=== PATIENT | female | born 1970 | race Caucasian/White ===

== ENCOUNTER 2017-10-14 14:09 | Outpatient (CLI) | payer OTHER ==
[~2017-10-14 14:09] MED LIST: AMOX1TAB12 PO; BETAMETHASONE D60 ML TP; DOLOGESIC CAPSU1 CAP PO; FLONASE16 GM NS; GILTUSS TR TAB1 EACH PO; LIPO-FLAVONOID1 EACH PO; MECLIZINE HCL12.5 MG PO; ORPH100T PO; PRILOSEC40 MG; PRILOSEC40 MG PO; PROTONIX40 MG PO; ZITHROMAX TRI-500 MG PO; ZYRTEC10 MG PO
== END 2017-10-14 14:14 | disposition home or self-care (01) ==
LOC: SONOGRAMA 14:09
DX: R10.2 Pelvic and perineal pain (principal)

== ENCOUNTER → 2017-11-09 | Outpatient (CLI) | payer OTHER | END | disposition home or self-care (01) | LOC: LAB 10:29 → EDSTATUS 10:30 → LAB 10:31 | DX: N83.02 Follicular cyst of left ovary (principal); N92.0 Excessive and frequent menstruation with regular cycle ==

== ENCOUNTER 2017-11-22 09:43 | Inpatient (IN) | payer OTHER ==
[~2017-11-22] VITALS: Ht 152.4 cm; Wt 63.5 kg
[2017-11-26] MEDS ORDERED: PROTONIX40 MG (15:44)
== END 2017-11-27 11:01 | disposition home or self-care (01) | DRG 743 ==
LOC: SURH 11-25 02:15 → SURG-SUITE 11-25 05:40 → O/R 11-25 05:40 → CIR.AMB 11-25 09:13 → EDSTATUS 11-25 09:46 → SURH 11-25 09:47 → SURG-SUITE 11-25 11:12
PROVIDERS: Obstetrics & Gynecology Gynecologic Oncology
PROC: 0UT64ZZ Resection of Left Fallopian Tube, Percutaneous Endoscopic Approach (ICD-10-PCS; 2017-11-25)
PROC: 0UT14ZZ Resection of Left Ovary, Percutaneous Endoscopic Approach (ICD-10-PCS; 2017-11-25)
PROC: 0UB94ZZ Excision of Uterus, Percutaneous Endoscopic Approach (ICD-10-PCS; principal; 2017-11-25 02:15)
DX: D25.9 Leiomyoma of uterus, unspecified (principal); N83.292 Other ovarian cyst, left side; D64.89 Other specified anemias; E80.6 Other disorders of bilirubin metabolism; N83.12 Corpus luteum cyst of left ovary

== ENCOUNTER 2018-04-01 16:07 | Outpatient (CLI) | payer OTHER ==
[~2018-04-01 16:07] MED LIST changes: +PROTONIX40 MG
== END 2018-04-01 16:49 | disposition home or self-care (01) ==
LOC: LAB 16:07
DX: R53.1 Weakness (principal); R51 Headache; R50.9 Fever, unspecified

== ENCOUNTER 2018-07-25 06:23 | Outpatient (CLI) | payer OTHER | END 2018-07-25 06:38 | disposition home or self-care (01) | LOC: LAB 06:23 | DX: R53.83 Other fatigue (principal); R57.8 Other shock; M25.50 Pain in unspecified joint ==

== ENCOUNTER → 2018-08-04 12:58 | Outpatient (CLI) | payer OTHER | END | disposition home or self-care (01) | LOC: LAB 08-03 09:51 | DX: N39.0 Urinary tract infection, site not specified (principal); E03.8 Other specified hypothyroidism ==

== ENCOUNTER → 2018-09-12 | Outpatient (CLI) | payer OTHER | END | disposition home or self-care (01) | LOC: LAB 10:11 | DX: M25.50 Pain in unspecified joint (principal); R76.0 Raised antibody titer ==

== ENCOUNTER 2018-10-14 10:23 | Outpatient (CLI) | payer OTHER | END 2018-10-14 16:25 | disposition home or self-care (01) | LOC: LAB 10:23 | DX: C90.00 Multiple myeloma not having achieved remission (principal); M33.22 Polymyositis with myopathy; M32.9 Systemic lupus erythematosus, unspecified ==

== ENCOUNTER 2018-10-16 21:25 | Emergency (ER) | payer OTHER ==
[~2018-10-16] VITALS: Ht 152.4 cm; Wt 68.0 kg
== END 2018-10-17 12:43 | disposition home or self-care (01) ==
LOC: ER 21:25
DX: E80.6 Other disorders of bilirubin metabolism (principal); N39.0 Urinary tract infection, site not specified

== ENCOUNTER 2018-10-19 10:18 | Outpatient (CLI) | payer OTHER | END 2018-10-19 10:39 | disposition home or self-care (01) | LOC: LAB 10:18 | DX: D59.6 Hemoglobinuria due to hemolysis from other external causes (principal); E80.6 Other disorders of bilirubin metabolism; K75.9 Inflammatory liver disease, unspecified; D64.89 Other specified anemias ==

== ENCOUNTER 2019-01-24 10:55 | Outpatient (CLI) | payer OTHER | END 2019-01-24 11:02 | disposition home or self-care (01) | LOC: LAB 10:55 | DX: N39.0 Urinary tract infection, site not specified (principal); Z00.00 Encounter for general adult medical examination without abnormal findings; R42 Dizziness and giddiness; E78.49 Other hyperlipidemia ==

== ENCOUNTER 2019-01-25 15:08 | Outpatient (CLI) | payer OTHER | END 2019-01-25 15:12 | disposition home or self-care (01) | LOC: LAB 15:08 | DX: J11.1 Influenza due to unidentified influenza virus with other respiratory manifestations (principal); R50.9 Fever, unspecified; A49.8 Other bacterial infections of unspecified site ==

== ENCOUNTER 2019-02-17 07:00 | Outpatient (CLI) | payer OTHER | END 2019-02-17 15:00 | disposition home or self-care (01) | LOC: LAB 07:00 | DX: Z11.3 Encounter for screening for infections with a predominantly sexual mode of transmission (principal) ==

== ENCOUNTER 2019-02-24 07:37 | Outpatient (CLI) | payer OTHER | END 2019-02-24 07:48 | disposition home or self-care (01) | LOC: MAMO-SONO 07:37 | DX: Z12.31 Encounter for screening mammogram for malignant neoplasm of breast (principal); N64.4 Mastodynia ==

== ENCOUNTER → 2019-03-31 08:19 | Outpatient (CLI) | payer OTHER | END | disposition home or self-care (01) | LOC: LAB 08:19 | DX: E03.8 Other specified hypothyroidism (principal); E78.00 Pure hypercholesterolemia, unspecified ==

== ENCOUNTER 2019-07-17 16:40 | Outpatient (CLI) | payer OTHER | END 2019-07-17 18:00 | disposition home or self-care (01) | LOC: LAB 16:40 | DX: J11.1 Influenza due to unidentified influenza virus with other respiratory manifestations (principal); R05 Cough ==

== ENCOUNTER → 2019-10-17 09:28 | Outpatient (CLI) | payer OTHER | END | disposition home or self-care (01) | LOC: LAB 10-13 16:40 | DX: R42 Dizziness and giddiness (principal); Z00.00 Encounter for general adult medical examination without abnormal findings; E78.49 Other hyperlipidemia; E55.9 Vitamin D deficiency, unspecified; N39.0 Urinary tract infection, site not specified; R10.2 Pelvic and perineal pain ==

== ENCOUNTER 2020-02-12 08:47 | Outpatient (CLI) | payer OTHER | END 2020-02-12 15:00 | disposition home or self-care (01) | LOC: LAB 08:47 | PROVIDERS: ATTEND General Practice | DX: R10.2 Pelvic and perineal pain (principal); Z13.6 Encounter for screening for cardiovascular disorders; Z00.8 Encounter for other general examination; Z12.31 Encounter for screening mammogram for malignant neoplasm of breast; Z12.11 Encounter for screening for malignant neoplasm of colon ==

== ENCOUNTER 2020-02-12 14:25 | Outpatient (CLI) | payer OTHER | END 2020-02-12 14:43 | disposition home or self-care (01) | LOC: SONOGRAMA 14:25 | PROVIDERS: ATTEND General Practice | DX: R10.84 Generalized abdominal pain (principal) ==

== ENCOUNTER 2020-03-13 15:25 | Outpatient (CLI) | payer OTHER | END 2020-03-13 15:30 | disposition home or self-care (01) | LOC: LAB 15:25 | PROVIDERS: ATTEND General Practice | DX: Z03.818 Encounter for observation for suspected exposure to other biological agents ruled out (principal); Z20.828 Contact with and (suspected) exposure to other viral communicable diseases ==

== ENCOUNTER 2020-04-19 06:30 | Day surgery (SDC) | payer OTHER | END 2020-04-19 10:00 | disposition home or self-care (01) | LOC: EDBD → AMB-ENDOS 06:30 | PROVIDERS: ATTEND Internal Medicine Gastroenterology | DX: D13.2 Benign neoplasm of duodenum (principal); K29.50 Unspecified chronic gastritis without bleeding; K44.9 Diaphragmatic hernia without obstruction or gangrene ==

== ENCOUNTER → 2020-04-30 10:09 | Outpatient (CLI) | payer OTHER | END | disposition home or self-care (01) | LOC: LAB 10:09 | PROVIDERS: ATTEND Internal Medicine Gastroenterology | DX: B96.81 Helicobacter pylori [H. pylori] as the cause of diseases classified elsewhere (principal); K29.30 Chronic superficial gastritis without bleeding; R74.0 Nonspecific elevation of levels of transaminase and lactic acid dehydrogenase [LDH]; E80.6 Other disorders of bilirubin metabolism ==

== ENCOUNTER → 2020-07-19 15:25 | Outpatient (CLI) | payer OTHER | END | disposition home or self-care (01) | LOC: LAB 15:25 | PROVIDERS: ATTEND Anesthesiology | DX: Z03.818 Encounter for observation for suspected exposure to other biological agents ruled out (principal) ==

== ENCOUNTER → 2020-09-04 10:17 | Outpatient (CLI) | payer OTHER | END | disposition home or self-care (01) | LOC: LAB 10:17 | PROVIDERS: ATTEND Colon & Rectal Surgery | DX: N39.0 Urinary tract infection, site not specified (principal); D53.8 Other specified nutritional anemias; K59.00 Constipation, unspecified; A92.8 Other specified mosquito-borne viral fevers; R53.81 Other malaise ==

== ENCOUNTER → 2020-09-16 09:05 | Outpatient (CLI) | payer OTHER | END | disposition home or self-care (01) | LOC: LAB 09:05 | PROVIDERS: ATTEND Anesthesiology | DX: E80.6 Other disorders of bilirubin metabolism (principal) ==

== ENCOUNTER → 2020-10-21 08:31 | Outpatient (CLI) | payer OTHER | END | disposition home or self-care (01) | LOC: LAB 08:31 | PROVIDERS: ATTEND Anesthesiology | DX: Z13.1 Encounter for screening for diabetes mellitus (principal) ==

== ENCOUNTER → 2020-11-12 10:05 | Outpatient (CLI) | payer OTHER | END | disposition home or self-care (01) | LOC: LAB 10:05 | PROVIDERS: ATTEND Anesthesiology | DX: Z03.818 Encounter for observation for suspected exposure to other biological agents ruled out (principal) ==

== ENCOUNTER 2021-01-30 10:51 | Outpatient (CLI) | payer OTHER | END 2021-01-30 11:04 | disposition home or self-care (01) | LOC: RAD → EDBD → SONOGRAMA 10:51 | PROVIDERS: ATTEND Obstetrics & Gynecology Gynecologic Oncology | DX: N92.1 Excessive and frequent menstruation with irregular cycle (principal) ==

== ENCOUNTER → 2021-02-03 09:58 | Outpatient (CLI) | payer OTHER | END | disposition home or self-care (01) | LOC: LAB 09:58 → EDBD 09:58 | PROVIDERS: ATTEND Anesthesiology | DX: N39.0 Urinary tract infection, site not specified (principal) ==

== ENCOUNTER → 2021-02-11 | Outpatient (CLI) | payer OTHER | END | disposition home or self-care (01) | LOC: EDBD 11:15 → MAMO-SONO 11:15 | DX: N92.1 Excessive and frequent menstruation with irregular cycle (principal); R19.03 Right lower quadrant abdominal swelling, mass and lump ==

== ENCOUNTER → 2021-03-13 | Outpatient (CLI) | payer OTHER | END | disposition home or self-care (01) | LOC: EDBD 09:27 → LAB 09:27 | PROVIDERS: ATTEND Emergency Medicine Pediatric Emergency Medicine | DX: Z03.818 Encounter for observation for suspected exposure to other biological agents ruled out (principal) ==

== ENCOUNTER 2021-03-19 13:15 | Outpatient (CLI) | payer OTHER | END 2021-03-19 18:12 | disposition home or self-care (01) | LOC: EDBD 13:15 → LAB 13:15 | PROVIDERS: ATTEND Specialist | DX: N95.1 Menopausal and female climacteric states (principal) ==

== ENCOUNTER 2021-03-26 14:56 | Outpatient (CLI) | payer OTHER | END 2021-03-26 18:50 | disposition home or self-care (01) | LOC: LAB 14:56 → EDBD 14:56 → LAB 18:50 | PROVIDERS: ATTEND Anesthesiology | DX: Z20.828 Contact with and (suspected) exposure to other viral communicable diseases (principal) ==

== ENCOUNTER → 2021-05-06 10:13 | Outpatient (CLI) | payer OTHER | END | disposition home or self-care (01) | LOC: LAB 10:13 | PROVIDERS: ATTEND Anesthesiology | DX: Z03.818 Encounter for observation for suspected exposure to other biological agents ruled out (principal) ==

== ENCOUNTER 2021-09-02 17:14 | Emergency (ER) | payer OTHER ==
[~2021-09-02] VITALS: Ht 152.4 cm; Wt 65.8 kg
[2021-09-03] MEDS ORDERED: FAMOTIDINE40 MG PO (10:35)
== END 2021-09-03 14:02 | disposition home or self-care (01) ==
LOC: ER 17:14
DX: U07.1 COVID-19 (principal); B34.9 Viral infection, unspecified; E80.6 Other disorders of bilirubin metabolism; R10.13 Epigastric pain

== ENCOUNTER 2021-11-10 10:53 | Outpatient (CLI) | payer OTHER ==
[~2021-11-10 10:53] MED LIST changes: +FAMOTIDINE40 MG PO
== END 2021-11-10 10:54 | disposition home or self-care (01) ==
LOC: LAB 10:53
PROVIDERS: ATTEND Anesthesiology
DX: Z01.812 Encounter for preprocedural laboratory examination (principal)

== ENCOUNTER 2025-01-18 06:45 | Day surgery (SDC) | payer OTHER ==
[2025-01-18] MEDS ORDERED: fentaNYL CITRATE 50 MCG/ML AMPUL IV STA (09:40)
[2025-01-18] MEDS ORDERED: MIDAZOLAM HCL 2 MG/2 ML VIAL IV STA (09:40)
== END 2025-01-18 11:45 | disposition home or self-care (01) ==
LOC: AMB-ENDOS 06:45
PROVIDERS: ATTEND Internal Medicine Gastroenterology
DX: K52.3 Indeterminate colitis (principal); Z12.11 Encounter for screening for malignant neoplasm of colon; Z91.041 Radiographic dye allergy status

== ENCOUNTER 2025-03-01 13:12 | Outpatient (CLI) | payer OTHER | END 2025-03-01 13:26 | disposition home or self-care (01) | LOC: MAMO-SONO 13:12 | PROVIDERS: ATTEND Surgery | DX: N60.11 Diffuse cystic mastopathy of right breast (principal); N60.12 Diffuse cystic mastopathy of left breast ==